=== PATIENT | male | born 1950 | race Caucasian/White ===

== ENCOUNTER 2023-07-20 05:47 | Inpatient (IN) | payer MEDICARE, BC ==
[~2023-07-20] VITALS: Ht 182.9 cm; Wt 93.0 kg
[~2023-07-20 05:47] MED LIST: ASPI81TA31 PO; CEPH-570 PO
[2023-07-20] MEDS ORDERED: ONDANSETRON 4 MG/2 ML VIAL ONE (06:02)
[2023-07-20] MEDS: ONDANSETRON 4 MG/2 ML VIAL IV ONE (06:05)
[2023-07-20] MEDS: IV NORMAL SALINE 1000 ML BAG IV ONE (06:16)
[2023-07-20] MEDS ORDERED: CARV12.52 PO (06:24)
[2023-07-20] MEDS ORDERED: EMPA25TA PO (06:24)
[2023-07-20] MEDS ORDERED: GLIP10TA11 PO (06:24)
[2023-07-20] MEDS ORDERED: PANT40TA49 PO (06:24)
[2023-07-20] MEDS ORDERED: METF-442 PO (06:24)
[2023-07-20] MEDS ORDERED: VALS160T2 PO (06:24)
[2023-07-20] MEDS ORDERED: FERR236T3 PO (06:24)
[2023-07-20] MEDS ORDERED: MAGN64TA9 PO (06:24)
[2023-07-20] MEDS ORDERED: APIX5TAB PO (06:24)
[2023-07-20] MEDS ORDERED: AMIO200T5 PO (06:24)
[2023-07-20] MEDS ORDERED: DOCU-141 PO (06:24)
[2023-07-20] MEDS ORDERED: FOLI1TAB94 PO (06:24)
[2023-07-20] MEDS ORDERED: ATOR80TA PO (06:24)
[2023-07-20 07:30] LABS: ALANINE AMINOTRANSFERASE 32 U/L (16-63); ALBUMIN 3.1 g/dL (3.4-5.0); ALKALINE PHOSPHATASE 69 U/L (50-136); ASPARTATE AMINOTRANSFERASE 15 U/L (15-37); BILIRUBIN,DIRECT 0.1 mg/dL (0.0-0.2); BILIRUBIN,TOTAL 0.4 mg/dL (0.2-1.0); CALCIUM 8.3 mg/dL (8.5-10.1); CARBON DIOXIDE 22 mmol/L (21-32); CHLORIDE 106 mmol/L (98-107); CREATININE 1.7 mg/dL (0.6-1.3); GLUCOSE 266 mg/dL (74-106); SODIUM SERUM 139 mmol/L (136-145); TOTAL PROTEIN, SERUM 5.9 g/dL (6.4-8.2); UREA NITROGEN, BLOOD 32 mg/dL (7-18)
[2023-07-20 07:33] LABS: BASOPHILS # (AUTO) 0.1 K/UL (0.0-0.2); BASOPHILS % (AUTO) 1.5 % (0.0-2.0); DIFFERENTIAL COMMENT 0; EOSINOPHILS # (AUTO) 0.7 K/uL (0.0-0.7); EOSINOPHILS % (AUTO) 7.5 % (0.0-7.0); HEMOGLOBIN 9.9 g/dL (12.5-16.3); LYMPHOCYTES # (AUTO) 1.2 K/uL (0.8-4.8); LYMPHOCYTES % (AUTO) 12.6 % (20.5-51.5); MEAN CORPUSCULAR HEMOGLOBIN 24.1 uug (23.8-33.4); MEAN CORPUSCULAR HGB CONC 32 g/dL (32.5-36.3); MEAN CORPUSCULAR VOLUME 75.3 fL (73.0-96.2); MONOCYTES # (AUTO) 0.6 K/uL (0.1-1.30); MONOCYTES % (AUTO) 6.1 % (0.0-11.0); NEUTROPHILS # (AUTO) 6.8 K/uL (1.8-8.9); NEUTROPHILS % (AUTO) 72.3 % (38.5-71.5); PLATELET COUNT (AUTO) 218 K/uL (152-348); RED BLOOD CELL COUNT(AUTO) 4.12 MIL/uL (4.06-5.63); RED CELL DISTRIBUTION WIDTH 24.9 % (12.1-16.2); WHITE BLOOD COUNT (AUTO) 9.3 K/uL (3.6-10.2)
[2023-07-20] MEDS ORDERED: ONDANSETRON 4 MG/2 ML VIAL IV PRN (09:45)
[2023-07-20] MEDS ORDERED: REMEDY ESSENTIAL ZINC PASTE 113 GM TP PRN (09:45)
[2023-07-20] MEDS ORDERED: JARDIANCE 25 MG TAB XX SCH (09:45)
[2023-07-20] MEDS ORDERED: MORPHINE SULFATE 2 MG/1 ML DISP.SYRIN IV PRN (09:45)
[2023-07-20] MEDS ORDERED: MAGNESIUM HYDROXIDE 30 ML LIQUID UDC PO PRN (09:45)
[2023-07-20] MEDS ORDERED: HYDROCODONE/APAP 10-325 MG TABLET PO PRN (09:45)
[2023-07-20] MEDS ORDERED: HOME MED MISCELLANEOUS XX SCH (09:45)
[2023-07-20] MEDS ORDERED: PANTOPRAZOLE SODIUM 40 MG TABLET.DR PO SCH (09:45)
[2023-07-20] MEDS ORDERED: DEXTROSE 50% 50 ML DISP.SYRIN IV PRN (09:45)
[2023-07-20] MEDS ORDERED: HYDROCODONE/APAP 5-325MG TABLET PO PRN (10:45)
[2023-07-20] MEDS ORDERED: LEVO50TA8 PO (11:15)
[2023-07-20] MEDS ORDERED: INSU300I SQ (11:16)
[2023-07-20 11:38] VITALS: BP 100/64; TEMP 97.7; O2SAT 98
[2023-07-20] MEDS: BLOOD SUGAR DIAGNOSTIC 1 EACH STRIP VI SCH (12:05)
[2023-07-20] MEDS: LEVOTHYROXINE SODIUM 50 MCG TABLET PO SCH (13:01)
[2023-07-20] MEDS: INSULIN REGULAR, HUMAN 300 UNIT/3 ML VIAL SQ PRN (13:05)
[2023-07-20] MEDS: IV NS 1000 ML 1,000 ML IV PRN (13:30)
[2023-07-20 15:48] VITALS: BP 99/54; TEMP 98.4; O2SAT 95
[2023-07-20 15:49] VITALS: BP 92/66; O2SAT 96
[2023-07-20 15:50] VITALS: BP 102/75; O2SAT 96
[2023-07-20] MEDS: glipiZIDE 10 MG TABLET PO SCH (17:31)
[2023-07-20] MEDS: AMIODARONE HCL 200 MG TABLET PO SCH (17:31)
[2023-07-20] MEDS: CARVEDILOL 12.5 MG TABLET PO SCH (17:31)
[2023-07-20 20:00] VITALS: BP 126/57; TEMP 97.8; O2SAT 96
[2023-07-20] MEDS: ATORVASTATIN 40 MG TABLET PO SCH (20:57)
[2023-07-21] VITALS: BP 110/65; TEMP 97.8; O2SAT 94
[2023-07-21 04:00] VITALS: BP 124/60; TEMP 97.7; O2SAT 96
[2023-07-21] MEDS: PANTOPRAZOLE SODIUM 40 MG TABLET.DR PO SCH (06:08)
[2023-07-21 07:36] VITALS: BP 109/67; TEMP 98.1; O2SAT 94
[2023-07-21 07:48] LABS: BASOPHILS # (AUTO) 0.1 K/UL (0.0-0.2); BASOPHILS % (AUTO) 1.9 % (0.0-2.0); EOSINOPHILS # (AUTO) 0.7 K/uL (0.0-0.7); EOSINOPHILS % (AUTO) 11.3 % (0.0-7.0); HEMATOCRIT 27.5 % (36.7-47.1); HEMOGLOBIN 8.9 g/dL (12.5-16.3); LYMPHOCYTES # (AUTO) 1.2 K/uL (0.8-4.8); LYMPHOCYTES % (AUTO) 18.7 % (20.5-51.5); MEAN CORPUSCULAR HEMOGLOBIN 24.3 uug (23.8-33.4); MEAN CORPUSCULAR HGB CONC 32 g/dL (32.5-36.3); MEAN CORPUSCULAR VOLUME 74.8 fL (73.0-96.2); MONOCYTES # (AUTO) 0.4 K/uL (0.1-1.30); MONOCYTES % (AUTO) 6.7 % (0.0-11.0); NEUTROPHILS # (AUTO) 4.1 K/uL (1.8-8.9); NEUTROPHILS % (AUTO) 61.4 % (38.5-71.5); PLATELET COUNT (AUTO) 206 K/uL (152-348); RED BLOOD CELL COUNT(AUTO) 3.68 MIL/uL (4.06-5.63); RED CELL DISTRIBUTION WIDTH 25.3 % (12.1-16.2); WHITE BLOOD COUNT (AUTO) 6.6 K/uL (3.6-10.2)
[2023-07-21 08:05] LABS: CARBON DIOXIDE 25 mmol/L (21-32); CHLORIDE 109 mmol/L (98-107); CREATININE 1.3 mg/dL (0.6-1.3); GLUCOSE 164 mg/dL (74-106); PHOSPHOROUS 3.7 mg/dL (2.5-4.9); POTASSIUM 4.1 mmol/L (3.5-5.1); SODIUM SERUM 140 mmol/L (136-145); UREA NITROGEN, BLOOD 21 mg/dL (7-18)
[2023-07-21 08:14] LABS: DIFFERENTIAL COMMENT 1
[2023-07-21 08:16] LABS: THYROID STIMULATING HORMONE 1.714 mIU/mL (0.358-3.740)
[2023-07-21] MEDS: VALSARTAN 160 MG TABLET PO SCH (08:56)
[2023-07-21] MEDS: DOCUSATE SODIUM 100 MG CAPSULE PO SCH (08:56)
[2023-07-21] MEDS: FOLIC ACID 1 MG TABLET PO SCH (08:57)
[2023-07-21] MEDS: EMPAGLIFLOZIN 25 MG TABLET PO SCH (08:57)
[2023-07-21] MEDS: FERROUS SULFATE SLOW RELEASE 45 MG (ELEMENTAL) TABEC PO SCH (08:57)
[2023-07-21] MEDS: TOUJEO SQ SCH (08:58)
[2023-07-21] MEDS ORDERED: AMIODARONE HCL 200 MG TABLET PO SCH (09:00)
[2023-07-21] MEDS: MAGNESIUM CHLORIDE 64 MG TABLET.SA PO SCH (09:09)
[2023-07-21 11:37] VITALS: BP 104/68; TEMP 97.9; O2SAT 96
[2023-07-21] MEDS: ACETAMINOPHEN 325 MG TABLET PO PRN (13:26)
[2023-07-21 15:54] VITALS: BP 95/55; TEMP 97.8; O2SAT 95
[2023-07-21 20:00] VITALS: TEMP 97.8
[2023-07-22] VITALS (7 sets, daily range): BP systolic 98–133; BP diastolic 48–66; TEMP 97.5–98.6; O2SAT 93–96
[2023-07-22 05:49] LABS: BASOPHILS # (AUTO) 0.2 K/UL (0.0-0.2); BASOPHILS % (AUTO) 2.6 % (0.0-2.0); EOSINOPHILS # (AUTO) 0.9 K/uL (0.0-0.7); EOSINOPHILS % (AUTO) 14.2 % (0.0-7.0); HEMATOCRIT 26.5 % (36.7-47.1); HEMOGLOBIN 8.5 g/dL (12.5-16.3); LYMPHOCYTES # (AUTO) 1.2 K/uL (0.8-4.8); LYMPHOCYTES % (AUTO) 20.2 % (20.5-51.5); MEAN CORPUSCULAR HEMOGLOBIN 24.4 uug (23.8-33.4); MEAN CORPUSCULAR HGB CONC 32 g/dL (32.5-36.3); MEAN CORPUSCULAR VOLUME 76.1 fL (73.0-96.2); MONOCYTES # (AUTO) 0.5 K/uL (0.1-1.30); MONOCYTES % (AUTO) 8.3 % (0.0-11.0); NEUTROPHILS # (AUTO) 3.3 K/uL (1.8-8.9); NEUTROPHILS % (AUTO) 54.7 % (38.5-71.5); PLATELET COUNT (AUTO) 200 K/uL (152-348); RED BLOOD CELL COUNT(AUTO) 3.48 MIL/uL (4.06-5.63); RED CELL DISTRIBUTION WIDTH 25.3 % (12.1-16.2)
[2023-07-22 06:43] LABS: CARBON DIOXIDE 25 mmol/L (21-32); CHLORIDE 111 mmol/L (98-107); CREATININE 1.3 mg/dL (0.6-1.3); GLUCOSE 94 mg/dL (74-106); PHOSPHOROUS 3.6 mg/dL (2.5-4.9); SODIUM SERUM 144 mmol/L (136-145); UREA NITROGEN, BLOOD 17 mg/dL (7-18)
[2023-07-22 07:26] LABS: DIFFERENTIAL COMMENT 1
[2023-07-22] MEDS ORDERED: LIDOCAINE HCL 1% 20 ML VIAL ONE (13:17)
[2023-07-22 17:33] LABS: HEMATOCRIT 27.9 % (36.7-47.1); HEMOGLOBIN 8.7 g/dL (12.5-16.3)
== END 2023-07-22 20:18 | disposition home health service (06) | DRG 73 ==
LOC: ER 05:50 → EDSEX 05:50 → TELE-TD3 10:26 → MERGE 10:26 → TELE3 07-21 09:51
PROVIDERS: ADMIT Nurse Practitioner Acute Care; ATTEND Nurse Practitioner Acute Care
PROC: 0J9830Z Drainage of Abdomen Subcutaneous Tissue and Fascia with Drainage Device, Percutaneous Approach (ICD-10-PCS; principal; 2023-07-22)
DX: G90.8 Other disorders of autonomic nervous system (principal); N17.0 Acute kidney failure with tubular necrosis; L76.34 Postprocedural seroma of skin and subcutaneous tissue following other procedure; I48.20 Chronic atrial fibrillation, unspecified; I48.92 Unspecified atrial flutter; Y83.9 Surgical procedure, unspecified as the cause of abnormal reaction of the patient, or of later complication, without mention of misadventure at the time of the procedure; Y92.89 Other specified places as the place of occurrence of the external cause; S30.1XXA Contusion of abdominal wall, initial encounter; Z79.01 Long term (current) use of anticoagulants; E86.0 Dehydration; I25.10 Atherosclerotic heart disease of native coronary artery without angina pectoris; D63.8 Anemia in other chronic diseases classified elsewhere; G89.29 Other chronic pain; M54.2 Cervicalgia; R19.7 Diarrhea, unspecified; I25.5 Ischemic cardiomyopathy; I12.9 Hypertensive chronic kidney disease with stage 1 through stage 4 chronic kidney disease, or unspecified chronic kidney disease; E11.22 Type 2 diabetes mellitus with diabetic chronic kidney disease; N18.9 Chronic kidney disease, unspecified; E78.5 Hyperlipidemia, unspecified; Z90.49 Acquired absence of other specified parts of digestive tract; Z95.810 Presence of automatic (implantable) cardiac defibrillator; Z95.1 Presence of aortocoronary bypass graft; Z85.038 Personal history of other malignant neoplasm of large intestine; Z79.84 Long term (current) use of oral hypoglycemic drugs; Z79.899 Other long term (current) drug therapy; Z79.4 Long term (current) use of insulin
CPT/HCPCS: 36415; 71045; 76705; 83735; 84100; 84443; 84484; 85018; 85025; 85610; 85730; 93005; 93307; A4663; G0378; J1815; J2405; J3490; J7040; J7042; J7070

== ENCOUNTER 2023-07-24 14:38 | Emergency (ER) | payer MEDICARE, BC ==
[~2023-07-24] VITALS: Ht 182.9 cm; Wt 93.0 kg
[~2023-07-24 14:38] MED LIST changes: +AMIO200T5 PO; +APIX5TAB PO; +ATOR80TA PO; +CARV12.52 PO; +DOCU-141 PO; +EMPA25TA PO; +FERR236T3 PO; +FOLI1TAB94 PO; +GLIP10TA11 PO; +INSU300I SQ; +LEVO50TA8 PO; +MAGN64TA9 PO; +METF-442 PO; +PANT40TA49 PO; +VALS160T2 PO
[2023-07-24 15:05] VITALS: O2SAT 97
== END 2023-07-24 16:03 | disposition left against medical advice (07) ==
LOC: MERGE 14:38 → ER 14:38
DX: T81.89XA Other complications of procedures, not elsewhere classified, initial encounter (principal); I48.91 Unspecified atrial fibrillation; E78.5 Hyperlipidemia, unspecified; K21.9 Gastro-esophageal reflux disease without esophagitis; E11.9 Type 2 diabetes mellitus without complications; Z98.890 Other specified postprocedural states; Z79.899 Other long term (current) drug therapy; Y92.89 Other specified places as the place of occurrence of the external cause
CPT/HCPCS: A4606; A4663